=== PATIENT | male | born 1945 | race Caucasian/White ===

== ENCOUNTER 2017-12-12 16:31 | Emergency (ER) | payer OTHER ==
[~2017-12-12] VITALS: Ht 175.3 cm; Wt 96.6 kg
[2017-12-12 20:17] VITALS: BP 147/80
== END 2017-12-12 20:17 | disposition home or self-care (01) ==
LOC: ED 16:31
DX: S61.215A Laceration without foreign body of left ring finger without damage to nail, initial encounter (principal); I10 Essential (primary) hypertension; E11.9 Type 2 diabetes mellitus without complications; Z86.73 Personal history of transient ischemic attack (TIA), and cerebral infarction without residual deficits; W26.8XXA Contact with other sharp object(s), not elsewhere classified, initial encounter; Y93.89 Activity, other specified; Y92.89 Other specified places as the place of occurrence of the external cause; Y99.8 Other external cause status
CPT/HCPCS: 90715; J2001

== ENCOUNTER 2017-12-27 09:41 | Day surgery (SDC) | payer OTHER ==
[2017-12-24 12:49] LABS: BASOPHIL % 0.4 % (0-2); PLATELET COUNT 250 x10^3mcL (130-400); RED CELL DISTRIBUTION WIDTH 13.4 % (11.5-14.5)
[2017-12-24 13:01] LABS: CALCIUM 9.3 mg/dL (8.5-10.1); CARBON DIOXIDE 26.7 mmol/L (21-32); CHLORIDE SERUM 98 mmol/L (98-107); CREATININE SERUM 1.1 mg/dL (0.7-1.3); POTASSIUM SERUM 3.8 mmol/L (3.5-5.1); SODIUM SERUM 136 mmol/L (136-145)
[2017-12-24 13:18] LABS: GLUCOSE SERUM 54 mg/dL (74-106)
[~2017-12-27] VITALS: Ht 175.3 cm; Wt 97.5 kg
== END 2017-12-27 17:00 | disposition home or self-care (01) ==
LOC: DS 09:41
PROVIDERS: Neuromusculoskeletal Medicine, Sports Medicine
DX: I96 Gangrene, not elsewhere classified (principal); E11.52 Type 2 diabetes mellitus with diabetic peripheral angiopathy with gangrene; Z79.4 Long term (current) use of insulin
CPT/HCPCS: 82962; J2175; J2250; J3010

== ENCOUNTER → 2017-12-27 | Day surgery (SDC) | payer OTHER ==
[~2017-12-27] VITALS: Ht 175.3 cm; Wt 97.5 kg
[2017-12-27 11:03] VITALS: BP 140/81
[2017-12-27 17:05] VITALS: BP 148/84
== END | disposition home or self-care (01) ==
LOC: DS 10:00 → OR 12:00 → DS 13:30
PROVIDERS: Neuromusculoskeletal Medicine, Sports Medicine
PROC: 0JBK0ZZ Excision of Left Hand Subcutaneous Tissue and Fascia, Open Approach (ICD-10-PCS; principal; 2017-12-27 13:45)
DX: E11.52 Type 2 diabetes mellitus with diabetic peripheral angiopathy with gangrene (principal); I96 Gangrene, not elsewhere classified; E11.9 Type 2 diabetes mellitus without complications; I10 Essential (primary) hypertension; E78.5 Hyperlipidemia, unspecified; X58.XXXS Exposure to other specified factors, sequela; Z86.73 Personal history of transient ischemic attack (TIA), and cerebral infarction without residual deficits; Z79.84 Long term (current) use of oral hypoglycemic drugs; Z79.82 Long term (current) use of aspirin
CPT/HCPCS: 82962; J2001; J2175; J2250; J3010; J3490; J7030